=== PATIENT | male | born 1970 | race African-American/Black ===

== ENCOUNTER 2022-12-01 19:04 | Inpatient (IN) | payer MEDICARE, MEDICAID ==
[~2022-12-01] VITALS: Ht 177.8 cm; Wt 75.3 kg
[2022-12-01 21:17] LABS: BASOPHILS % 0.9 % (0.0-2.0); EOSINOPHILS % 0.9 % (0.0-5.0); HEMATOCRIT. 31.8 % (42.0-52.0); HEMOGLOBIN. 10.3 g/dL (14.0-18.0); LYMPHOCYTES % 15.8 % (20.0-50.0); MEAN CORPUSCULAR HEMOGLOBIN 25.5 pg (28.0-32.0); MEAN CORPUSCULAR VOLUME 78.4 fL (80.0-94.0); MEAN PLATELET VOLUME 6.7 fl (7.4-10.4); MONOCYTES % 6.5 % (2.0-8.0); NEUTROPHILS % 75.9 % (40.0-76.0); PLATELET 443 x1000/uL (130-400); RED BLOOD CELL COUNT 4.05 mill/uL (4.7-6.1); RED CELL DISTRIBUTION WIDTH 17.1 % (11.6-14.6)
[2022-12-01 21:27] LABS: CHLORIDE 105 mEq/L (98-107)
[2022-12-01] MEDS ORDERED: VANCOMYCIN 1G PREMIX 200 ML IV ONE (23:45)
[2022-12-01] MEDS ORDERED: CEFTRIAXONE 1GM PREMIX 50 ML IV ONE (23:45)
[2022-12-01] MEDS ORDERED: SODIUM CHLORIDE 0.9% 1000ML BAG (SEPSIS BOLUS) IV ONE (23:45)
[2022-12-02] MEDS ORDERED: VANCOMYCIN 1G PREMIX 200 ML IV NR (00:30)
[2022-12-02] MEDS ORDERED: CEFTRIAXONE 1GM PREMIX 50 ML IV NR (00:30)
[2022-12-02] MEDS ORDERED: MORPHINE SULFATE 4 MG/ML CPJ (NOT FOR IM USE) IV ONE (02:00)
[2022-12-02] MEDS ORDERED: GUAIFENESIN 200MG/10ML SUGAR FREE UDC PO PRN (09:30)
[2022-12-02] MEDS ORDERED: CLONIDINE 0.1MG TABLET PO PRN (09:30)
[2022-12-02] MEDS ORDERED: DOCUSATE SODIUM 100MG CAPSULE PO PRN (09:30)
[2022-12-02] MEDS ORDERED: ONDANSETRON HCL 4MG/2ML INJ IV PRN (09:30)
[2022-12-02] MEDS ORDERED: DEXTROSE 50% WATER 50ML SYRINGE IV PRN (09:30)
[2022-12-02] MEDS ORDERED: IPRATROPIUM/ALBUTEROL 0.5-3(2.5)MG/3ML NEB HHN PRN (09:30)
[2022-12-02] MEDS ORDERED: ACETAMINOPHEN 325MG TABLET PO PRN (09:30)
[2022-12-02] MEDS ORDERED: NALOXONE HCL 0.4MG/ML VIAL IV PRN (10:00)
[2022-12-02] MEDS: BLOOD SUGAR DIAGNOSTIC STRIP TEST SCH ×4 (11:17→21:00)
[2022-12-02] MEDS: INSULIN LISPRO 100 UNITS/ML SUBCUT SCH ×3 (11:21→21:00)
[2022-12-02 17:00] VITALS: BP 146/91
[2022-12-02] MEDS: ENOXAPARIN 40MG/0.4ML SYR SUBCUT SCH (18:10)
[2022-12-02] MEDS: VANCOMYCIN 1G PREMIX 200 ML IV SCH (18:10)
[2022-12-02 20:00] VITALS: BP 142/78
[2022-12-02] MEDS: PIPERACILLIN/TAZOBACTAM 3.375 G in DEXTROSE 5% WATER 50 ML IV SCH (22:45)
[2022-12-02] MEDS: FAMOTIDINE 20MG TABLET PO SCH (22:45)
[2022-12-02] MEDS: HYDROCODONE/ACETAMINOPHEN 5/325MG TABLET PO PRN (22:59)
[2022-12-03] VITALS: BP 138/70
[2022-12-03] MEDS: VANCOMYCIN 1G PREMIX 200 ML IV SCH ×3 (02:26→18:00)
[2022-12-03 04:00] VITALS: BP 140/76
[2022-12-03] MEDS: PIPERACILLIN/TAZOBACTAM 3.375 G in DEXTROSE 5% WATER 50 ML IV SCH ×3 (06:00→22:00)
[2022-12-03 07:09] LABS: EOSINOPHILS % 2.5 % (0.0-5.0); HEMATOCRIT. 30.6 % (42.0-52.0); LYMPHOCYTES % 23.4 % (20.0-50.0); MEAN CORPUSCULAR HEMOGLOBIN 25.7 pg (28.0-32.0); MEAN CORPUSCULAR VOLUME 78.3 fL (80.0-94.0); MEAN PLATELET VOLUME 6.8 fl (7.4-10.4); MONOCYTES % 7.2 % (2.0-8.0); NEUTROPHILS % 65.9 % (40.0-76.0); PLATELET 469 x1000/uL (130-400); RED BLOOD CELL COUNT 3.91 mill/uL (4.7-6.1); RED CELL DISTRIBUTION WIDTH 16.8 % (11.6-14.6)
[2022-12-03] MEDS: BLOOD SUGAR DIAGNOSTIC STRIP TEST SCH ×4 (07:20→21:00)
[2022-12-03 07:43] LABS: FERRITIN 79 ng/mL (22-322)
[2022-12-03] MEDS: INSULIN LISPRO 100 UNITS/ML SUBCUT SCH ×4 (07:50→21:00)
[2022-12-03 08:00] VITALS: BP 138/94
[2022-12-03] MEDS: PNEUMOCOCCAL VACCINE IM SCH (09:00)
[2022-12-03 09:22] LABS: CHLORIDE 106 mEq/L (98-107)
[2022-12-03 09:40] LABS: HDL CHOLESTEROL 36 mg/dL (40-59); LDL CHOLESTEROL 70 mg/dL (5-100); PHOSPHORUS 3.5 mg/dL (2.5-4.9); T4 FREE 1.33 ng/dL (0.76-1.46); TOTAL IRON BINDING CAPACITY 273 ug/dL (250-450)
[2022-12-03] MEDS: THIAMINE HCL 100MG TABLET PO SCH (09:53)
[2022-12-03] MEDS: FOLIC ACID 1MG TABLET PO SCH (09:53)
[2022-12-03] MEDS: FAMOTIDINE 20MG TABLET PO SCH ×2 (09:53→21:00)
[2022-12-03] MEDS: MULTIVITAMINS,THER W-MINERALS TABLET PO SCH (09:53)
[2022-12-03] MEDS: FERROUS SULFATE 325MG TABLET PO SCH (09:54)
[2022-12-03] MEDS: HYDROCODONE/ACETAMINOPHEN 5/325MG TABLET PO PRN ×2 (09:56→23:42)
[2022-12-03 10:07] LABS: VITAMIN B12 SERUM 387 pg/mL (211-911)
[2022-12-03 12:00] VITALS: BP 140/89
[2022-12-03 16:00] VITALS: BP 142/87
[2022-12-03 20:00] VITALS: BP 160/97
[2022-12-04] VITALS: BP 129/84
[2022-12-04] MEDS: VANCOMYCIN 1G PREMIX 200 ML IV SCH ×2 (02:00→10:25)
[2022-12-04 04:00] VITALS: BP 122/80
[2022-12-04] MEDS: PIPERACILLIN/TAZOBACTAM 3.375 G in DEXTROSE 5% WATER 50 ML IV SCH ×2 (06:23→21:35)
[2022-12-04] MEDS: BLOOD SUGAR DIAGNOSTIC STRIP TEST SCH ×4 (07:20→21:35)
[2022-12-04] MEDS: INSULIN LISPRO 100 UNITS/ML SUBCUT SCH ×2 (07:50→21:49)
[2022-12-04 08:00] VITALS: BP 138/77
[2022-12-04] MEDS: FOLIC ACID 1MG TABLET PO SCH (08:50)
[2022-12-04] MEDS: FERROUS SULFATE 325MG TABLET PO SCH (08:50)
[2022-12-04] MEDS: THIAMINE HCL 100MG TABLET PO SCH (08:51)
[2022-12-04] MEDS: MULTIVITAMINS,THER W-MINERALS TABLET PO SCH (08:51)
[2022-12-04] MEDS: FAMOTIDINE 20MG TABLET PO SCH ×3 (08:51→21:35)
[2022-12-04] MEDS: PNEUMOCOCCAL VACCINE IM SCH (09:00)
[2022-12-04] MEDS: ARIPIPRAZOLE 5MG TABLET PO SCH (10:19)
[2022-12-04] MEDS: HYDROCODONE/ACETAMINOPHEN 5/325MG TABLET PO PRN (10:23)
[2022-12-04 12:00] VITALS: BP 127/79
[2022-12-04 16:00] VITALS: BP 112/73
[2022-12-04 17:16] LABS: CHLORIDE 104 mEq/L (98-107)
[2022-12-05] VITALS: BP 140/86
[2022-12-05] MEDS: VANCOMYCIN 1G PREMIX 200 ML IV SCH ×3 (03:06→16:00)
[2022-12-05] MEDS: INSULIN LISPRO 100 UNITS/ML SUBCUT SCH ×5 (03:09→21:00)
[2022-12-05 04:00] VITALS: BP 129/67
[2022-12-05] MEDS: PIPERACILLIN/TAZOBACTAM 3.375 G in DEXTROSE 5% WATER 50 ML IV SCH ×3 (05:15→21:51)
[2022-12-05 06:45] LABS: CHLORIDE 104 mEq/L (98-107)
[2022-12-05] MEDS: BLOOD SUGAR DIAGNOSTIC STRIP TEST SCH ×4 (06:58→21:51)
[2022-12-05] MEDS: FERROUS SULFATE 325MG TABLET PO SCH (09:00)
[2022-12-05] MEDS: MULTIVITAMINS,THER W-MINERALS TABLET PO SCH (09:00)
[2022-12-05] MEDS: FAMOTIDINE 20MG TABLET PO SCH ×2 (09:00→21:51)
[2022-12-05] MEDS: THIAMINE HCL 100MG TABLET PO SCH (09:00)
[2022-12-05] MEDS: PNEUMOCOCCAL VACCINE IM SCH (09:00)
[2022-12-05] MEDS: FOLIC ACID 1MG TABLET PO SCH (09:00)
[2022-12-05] MEDS: ARIPIPRAZOLE 5MG TABLET PO SCH (09:00)
[2022-12-05] MEDS ORDERED: THIA100T72 PO (11:36)
[2022-12-05] MEDS ORDERED: FOLI-43 PO (11:36)
[2022-12-05] MEDS ORDERED: ABIL5 PO (11:36)
[2022-12-05] MEDS ORDERED: FERR-63 PO (11:36)
[2022-12-05] MEDS ORDERED: AMOX1TAB16 MT (11:40)
[2022-12-05 14:39] VITALS: BP 135/80
[2022-12-05] MEDS: ENOXAPARIN 40MG/0.4ML SYR SUBCUT SCH (18:00)
[2022-12-05] MEDS: HYDROCODONE/ACETAMINOPHEN 5/325MG TABLET PO PRN (18:06)
[2022-12-06] VITALS: BP 128/65
[2022-12-06 03:18] LABS: BASOPHILS % 1.2 % (0.0-2.0); EOSINOPHILS % 2.7 % (0.0-5.0); HEMATOCRIT. 32.7 % (42.0-52.0); HEMOGLOBIN. 10.7 g/dL (14.0-18.0); LYMPHOCYTES % 33.9 % (20.0-50.0); MEAN CORPUSCULAR HEMOGLOBIN 25.5 pg (28.0-32.0); MEAN CORPUSCULAR VOLUME 77.8 fL (80.0-94.0); MEAN PLATELET VOLUME 6.5 fl (7.4-10.4); MONOCYTES % 8.1 % (2.0-8.0); NEUTROPHILS % 54.1 % (40.0-76.0); PLATELET 566 x1000/uL (130-400); RED BLOOD CELL COUNT 4.21 mill/uL (4.7-6.1); RED CELL DISTRIBUTION WIDTH 16.7 % (11.6-14.6)
[2022-12-06 03:54] LABS: CHLORIDE 106 mEq/L (98-107)
[2022-12-06] MEDS: VANCOMYCIN 1G PREMIX 200 ML IV SCH ×2 (06:00→18:31)
[2022-12-06] MEDS: PIPERACILLIN/TAZOBACTAM 3.375 G in DEXTROSE 5% WATER 50 ML IV SCH ×3 (06:00→22:00)
[2022-12-06] MEDS: INSULIN LISPRO 100 UNITS/ML SUBCUT SCH ×5 (07:42→22:16)
[2022-12-06] MEDS: BLOOD SUGAR DIAGNOSTIC STRIP TEST SCH ×4 (07:42→21:31)
[2022-12-06 08:00] VITALS: BP 145/87
[2022-12-06] MEDS: FERROUS SULFATE 325MG TABLET PO SCH (09:15)
[2022-12-06] MEDS: MULTIVITAMINS,THER W-MINERALS TABLET PO SCH (09:15)
[2022-12-06] MEDS: FAMOTIDINE 20MG TABLET PO SCH ×2 (09:16→21:26)
[2022-12-06] MEDS: THIAMINE HCL 100MG TABLET PO SCH (09:16)
[2022-12-06] MEDS: FOLIC ACID 1MG TABLET PO SCH (09:16)
[2022-12-06] MEDS: ARIPIPRAZOLE 5MG TABLET PO SCH (10:03)
[2022-12-06] MEDS: ENOXAPARIN 40MG/0.4ML SYR SUBCUT SCH (18:30)
[2022-12-06 20:00] VITALS: BP 129/80
[2022-12-07] VITALS: BP 134/84
[2022-12-07 04:00] VITALS: BP 130/76
[2022-12-07] MEDS: VANCOMYCIN 1G PREMIX 200 ML IV SCH ×2 (06:00→17:28)
[2022-12-07] MEDS: PIPERACILLIN/TAZOBACTAM 3.375 G in DEXTROSE 5% WATER 50 ML IV SCH ×2 (06:00→14:00)
[2022-12-07] MEDS: BLOOD SUGAR DIAGNOSTIC STRIP TEST SCH ×4 (07:20→21:46)
[2022-12-07] MEDS: INSULIN LISPRO 100 UNITS/ML SUBCUT SCH ×4 (07:50→21:12)
[2022-12-07 08:00] VITALS: BP 132/75
[2022-12-07] MEDS: THIAMINE HCL 100MG TABLET PO SCH (08:21)
[2022-12-07] MEDS: FERROUS SULFATE 325MG TABLET PO SCH (08:21)
[2022-12-07] MEDS: FAMOTIDINE 20MG TABLET PO SCH ×2 (08:21→21:51)
[2022-12-07] MEDS: FOLIC ACID 1MG TABLET PO SCH (08:21)
[2022-12-07] MEDS: MULTIVITAMINS,THER W-MINERALS TABLET PO SCH (08:21)
[2022-12-07] MEDS: ARIPIPRAZOLE 5MG TABLET PO SCH (08:22)
[2022-12-07 12:00] VITALS: BP 130/72
[2022-12-07 16:00] VITALS: BP 132/75
[2022-12-07] MEDS: ENOXAPARIN 40MG/0.4ML SYR SUBCUT SCH (17:58)
[2022-12-08] MEDS: BLOOD SUGAR DIAGNOSTIC STRIP TEST SCH ×2 (07:20→11:59)
[2022-12-08] MEDS: INSULIN LISPRO 100 UNITS/ML SUBCUT SCH ×2 (07:50→11:59)
[2022-12-08] MEDS ORDERED: CYANOCOBALAMIN 100MCG TABLET PO SCH (07:50)
[2022-12-08 08:00] VITALS: BP 143/98
[2022-12-08] MEDS: FOLIC ACID 1MG TABLET PO SCH (09:01)
[2022-12-08] MEDS: FERROUS SULFATE 325MG TABLET PO SCH (09:01)
[2022-12-08] MEDS: FAMOTIDINE 20MG TABLET PO SCH (09:02)
[2022-12-08] MEDS: MULTIVITAMINS,THER W-MINERALS TABLET PO SCH (09:02)
[2022-12-08] MEDS: THIAMINE HCL 100MG TABLET PO SCH (09:02)
[2022-12-08] MEDS: ARIPIPRAZOLE 5MG TABLET PO SCH (09:04)
[2022-12-08 13:01] VITALS: BP 143/98
[2022-12-08] MEDS ORDERED: ZOLPIDEM TARTRATE 5MG TABLET PO PRN (13:30)
[2022-12-08] MEDS ORDERED: SERTRALINE HCL 25MG TABLET PO SCH (13:30)
[2022-12-08] MEDS ORDERED: ARIPIPRAZOLE 5MG TABLET PO SCH (17:00)
== END 2022-12-08 15:00 | DRG 602 ==
LOC: ER 19:04 → EDBEDREQ 12-02 00:34 → MICUSO 12-02 01:58 → EDBD 12-02 01:58 → EDBEDREQSVC 12-02 01:59 → 6EST 12-02 17:00
PROVIDERS: ADMIT Internal Medicine; ATTEND Internal Medicine
DX: L03.116 Cellulitis of left lower limb (principal); G92.8 Other toxic encephalopathy; E11.9 Type 2 diabetes mellitus without complications; F14.90 Cocaine use, unspecified, uncomplicated; F17.210 Nicotine dependence, cigarettes, uncomplicated; Z20.822 Contact with and (suspected) exposure to COVID-19; H54.62 Unqualified visual loss, left eye, normal vision right eye; H91.91 Unspecified hearing loss, right ear; I10 Essential (primary) hypertension; F19.10 Other psychoactive substance abuse, uncomplicated; F25.9 Schizoaffective disorder, unspecified; D50.9 Iron deficiency anemia, unspecified; Z59.00 Homelessness unspecified; Z68.30 Body mass index [BMI] 30.0-30.9, adult; Z86.73 Personal history of transient ischemic attack (TIA), and cerebral infarction without residual deficits; S81.802A Unspecified open wound, left lower leg, initial encounter; W34.00XA Accidental discharge from unspecified firearms or gun, initial encounter
CPT/HCPCS: 36415; 73590; 73700; 80048; 80053; 80061; 80202; 82607; 82728; 82746; 82962; 83036; 83540; 83550; 83605; 83735; 84100; 84145; 84439; 84443; 85025; 90732; 93005; 93923; 93970; 97110; 97116; 97162; 97166; 99291; C1893; J0696; J1650; J1815; J2270; J2543; J3370; J7030; J7060